=== PATIENT | female | born 2000 | race African-American/Black ===

== ENCOUNTER 2020-04-16 06:58 | Emergency (ER) | payer SELFPAY ==
[~2020-04-16] VITALS: Ht 160 cm; Wt 59.2 kg
--- NOTE | 2020-04-16 07:35 | NUR ---
Ultrasound ETA is 45 minutes
--- NOTE | 2020-04-16 09:09 | Diagnostic Imaging Report ---
OB ultrasound, limited. History: Vaginal bleeding. Comparison: None available. Discussion: Transabdominal evaluation of the pelvis was performed in the transverse and longitudinal planes. The uterus is a large measuring 11.7 x 7.7 x 6.3 cm. An intrauterine gestational sac is not identified. The uterus and lower uterine segment or distended with heterogeneous echogenic material suggestive of blood. The ovaries were not visible. There is a small amount of free fluid. IMPRESSION: No viable intrauterine . Findings suggestive of miscarriage. The findings were discussed with Dr. Crooks at 0905 on 04/16/2020. Signed by: Malvin Tijerina on 04/16/2020 9:06 AM
--- NOTE | 2020-04-16 09:20 | NUR ---
POC found in pt's vaginal area and collected and put in conainer for pathology.
--- NOTE | 2020-04-16 09:26 | NUR ---
Contacted [facility] transfer center for transfer to [place] for [facility].
--- NOTE | 2020-04-16 09:57 | Emergency Department Note ---
History of Present Illnes History of Present Illness Chief Complaint: Abdominal Complaints History of Present Illness This is a 19 year old female Chief Complaint Comment Reports that she started cramping and passing blood clots this morning and states that she has no [employer] yet and has only [facility] so far. . Onset (how long ago): day(s) (1) Location: vaginal bleeding Quality: dull Radiation: Reports non-radiation Severity: moderate Onset quality: gradual Duration (how long): day(s) (1) Timing of current episode: intermittent Progression: waxing and waning Chronicity: new Context: Denies recent illness, Denies recent surgery, Denies recent immobiliz ation, Denies recent travel, Denies trauma/injury, Denies new medications, Denies hx of DVT/PE, Denies non-compliance w/ medications, Denies other Relieving factors: none Exacerbating factors: none Associated symptoms: Denies denies other symptoms, Denies confusion, Denies chest pain, Denies cough, Denies diaphoresis, Denies fever/chills, Denies headaches, Denies loss of appetite, Denies malaise, Denies nausea/vomiting, Denies rash, Denies seizure, Denies shortness of breath, Denies syncope, Denies weakness, Denies other Treatments prior to arrival: none Past Medical/Family History Physician Review I have reviewed the patient's past medical and family history. Any updates have been documented here. Past Medical History Recent Fever: No Clinical Suspicion of Infectio: No New/Unexplained Change in Ment: No Past Medical History: None Past Surgical History: None Social History Smoking Cessation: Never Smoker Counseling Performed: No Alcohol Use: None Any Illegal Drug Use: No Physically hurt or threatened: No Other Any Pre-Existing Lines (PICC,: No Review of Systems Review of Systems Constitutional: Reports no symptoms EENTM: Reports no symptoms Cardiovascular: Reports no symptoms Respiratory: Reports no symptoms Gastrointestinal: Reports no symptoms Genitourinary: Reports as per HPI Musculoskeletal: Reports no symptoms Integumentary: Reports no symptoms Neurological: Reports no symptoms Psychological: Reports no symptoms Endocrine: Reports no symptoms Hematological/Lymphatic: Reports no symptoms Physical Exam Related Data Allergies: Coded Allergies: No Known Allergies (Unverified , 04/16/20) Triage Vital Signs Vital Signs Date Time Temp Pulse Resp B/P (MAP) Pulse Ox O2 Delivery O2 Flow Rate FiO2 04/16/20 07:12 96.0 61 14 114/58 100 Room Air Vital signs reviewed: Yes Physical Exam CONSTITUTIONAL Constitutional: Present well-developed, Present well-nourished HENT HENT: Present normocephalic, Present atraumatic, Present oropharynx clear/moist, Present nose normal HENT L/R: Present left ext ear normal, Present right ext ear normal EYES Eyes: Reports PERRL, Reports conjunctivae normal NECK Neck: Present ROM normal PULMONARY Pulmonary: Present effort normal, Present breath sounds normal CARDIOVASCULAR Cardiovascular: Present regular rhythm, Present heart sounds normal, Present capillary refill normal, Present normal rate GASTROINTESTINAL Abdominal: Present soft, Present nontender, Present bowel sounds normal GENITOURINARY Genitourinary: Present other (sac with a baby has delivered spontaneously, no active bleeding) SKIN Skin: Present warm, Present dry MUSCULOSKELETAL Musculoskeletal: Present ROM normal NEUROLOGICAL Neurological: Present alert, Present oriented x 3, Present no gross motor or sensory deficits PSYCHOLOGICAL Psychological: Present mood/affect normal, Present judgement normal Results Laboratory Laboratory Laboratory Tests Test 04/16/20 07:40 Lab results reviewed: Yes Imaging Imaging results reviewed: Yes Assessment & Plan Medical Decision Making MDM THREATENED AB,,INCOMPLETE AB Reassessment Reassessment time: 09:56 Reassessment BETTER Assessment & Plan Final Impression: (1) Incomplete (2) Anemia Depart Disposition: TRANS TO OTHER [facility] Last Vital Signs Date Time Temp Pulse Resp B/P (MAP) Pulse Ox O2 Delivery O2 Flow Rate FiO2 04/16/20 07:12 96.0 61 14 114/58 100 Room Air TUSHAR HAWKINS MD Apr 16, 2020 09:57
--- NOTE | 2020-04-16 10:48 | NUR ---
Acceptance by JADA Hughes at [place]
--- NOTE | 2020-04-16 10:52 | NUR ---
admin Approval [facility] construction project coordinator
--- NOTE | 2020-04-16 10:58 | NUR ---
[facility] contacted for transport
--- NOTE | 2020-04-16 11:56 | NUR ---
Report called to SHAN Block [phone]
== END 2020-04-16 11:50 | disposition other institution (70) ==
LOC: FSED 07:25
DX: O03.4 Incomplete spontaneous abortion without complication (principal); O99.019 Anemia complicating pregnancy, unspecified trimester
CPT/HCPCS: 36415; 76805; 80053; 84702; 85025; 86850; 86900; 88305; 99284